=== PATIENT | female | born 1990 | race American Indian/Alaskan Native ===

== ENCOUNTER 2020-03-27 18:22 | Observation (INO) | payer MEDICAID ==
--- NOTE | 2020-03-27 18:51 | Event Note ---
ED Screening Note Date of service: 03/27/20 Time: 18:50 ED Screening Note: Patient reports sent here by primary care doctor for blood transfusion due to hemoglobin of 5 States history of anemia with blood transfusions Denies vaginal bleeding Admits to fatigue This initial assessment/diagnostic orders/clinical plan/treatment(s) is/are subject to change based on patients health status, clinical progression and re- assessment by fellow clinical providers in the ED. Further treatment and workup at subsequent clinical providers discretion. Patient/guardian urged not to elope from the ED as their condition may be serious if not clinically assessed and managed. Initial orders include: Labs
[2020-03-27 20:02] LABS: INR 0.87 (0.87-1.13)
[2020-03-27 20:03] LABS: Mean Corpuscular HGB Conc 28 % (30-34); Partial Thromboplastin Time 24.1 Sec. (24.2-36.6); Platelet Count 642 K/mm3 (140-440); Red Blood Count 3.94 M/mm3 (3.65-5.03)
[2020-03-27 20:07] LABS: Hemoglobin 6.5 gm/dl (10.1-14.3)
[2020-03-27 20:08] LABS: Hematocrit 23.3 % (30.3-42.9); Mean Corpuscular Volume 59 fl (79-97); Red Cell Distribution Width 35.1 % (13.2-15.2)
[2020-03-27 20:09] LABS: Alanine Aminotransferase 9 units/L (7-56); Blood Urea Nitrogen 11 mg/dL (7-17); Calcium 8.9 mg/dL (8.4-10.2); Hemolysis Index 5
[2020-03-27 20:11] LABS: BUN/Creatinine Ratio 18
[2020-03-27 20:57] LABS: Anisocytosis 2+; Hypochromasia 2+; Schistocytes Few; Total Cells Counted 100
[2020-03-27 20:58] LABS: Dimorphic RBC Yes; Target Cells Few
[2020-03-27] MEDS ORDERED: SODIUM CHLORIDE 0.9% 500 ML 500 ML IV ONE ×3 (20:59→23:13)
--- NOTE | 2020-03-27 21:04 | Emergency Department Report ---
ED General Adult HPI - General Chief complaint: Medical Clearance Stated complaint: BLOOD TRANFUSION PUI?: No Time Seen by Provider: 03/27/20 20:49 Source: patient Mode of arrival: Ambulatory Limitations: No Limitations - History of Present Illness Initial comments: Patient is a 29-year-old female that presents emergency room with complaints of fatigue, headache and anemia. Patient states she saw her VICE PRESIDENT PAYMENT yesterday and her hemoglobin was 5. Patient that she has a long history of anemia. Patient denies change in her period. Patient denies heavy bleeding. Patient that she is not on her period right now. Patient denies pain. Patient denies shortness of breath. Patient denies syncope. Patient states she is currently taking a vitamin. Patient denies recent travel. Patient denies recent international travel. P atient denies exposure to the novel coronavirus. Patient denies sick contacts. Patient denies fever and chills. Patient denies cough. Patient denies diarrhea. Patient denies coming in contact with anybody with symptoms of the novel coronavirus. -: Sudden - Related Data Previous Rx's Medication Instructions Recorded Last Taken Type Fluconazole (Nf) [Diflucan TAB] 150 mg PO ONCE #1 tablet 01/21/15 Unknown Rx metroNIDAZOLE [Flagyl TAB] 500 mg PO Q12HR #14 tab 01/21/15 Unknown Rx Ibuprofen [Motrin 600 MG tab] 600 mg PO Q8H PRN #20 tablet 05/06/15 Unknown Rx Allergies Allergy/AdvReac Type Severity Reaction Status Date / Time bee pollen Allergy Itching Verified 01/21/15 08:49 ED Review of Systems ROS: Stated complaint: BLOOD TRANFUSION Other details as noted in HPI Constitutional: malaise. denies: chills, fever Eyes: denies: eye pain, eye discharge, vision change ENT: denies: ear pain, throat pain Respiratory: denies: cough, shortness of breath, wheezing Cardiovascular: denies: chest pain, palpitations Endocrine: no symptoms reported Gastrointestinal: denies: abdominal pain, nausea, diarrhea Genitourinary: denies: urgency, dysuria, discharge Musculoskeletal: denies: back pain, joint swelling, arthralgia Skin: denies: rash, lesions Neurological: headache. denies: weakness, paresthesias Psychiatric: denies: anxiety, depression Hematological/Lymphatic: denies: easy bleeding, easy bruising ED Past Medical Hx - Past Medical History Previous Medical History?: Yes Hx Hypertension: Yes (GESTATIONAL) Additional medical history: miscarriage jun 2013, pre-eclampsia 2009. ANEMIA - Surgical History Past Surgical History?: No Additional Surgical History: tonsillectomy, x 2 - Family History Family history: no significant - Social History Smoking Status: Current Some Day Smoker Substance Use Type: None - Medications Home Medications: Home Medications Medication Instructions Recorded Confirmed Last Taken Type Fluconazole (Nf) [Diflucan TAB] 150 mg PO ONCE #1 tablet 01/21/15 Unknown Rx metroNIDAZOLE [Flagyl TAB] 500 mg PO Q12HR #14 tab 01/21/15 Unknown Rx Ibuprofen [Motrin 600 MG tab] 600 mg PO Q8H PRN #20 tablet 05/06/15 Unknown Rx ED Physical Exam - General Limitations: No Limitations General appearance: alert, in no apparent distress - Head Head exam: Present: atraumatic, normocephalic - Eye Eye exam: Present: normal appearance, PERRL, other (Scleral pallor noted) Pupils: Present: normal accommodation - ENT ENT exam: Present: mucous membranes moist - Neck Neck exam: Present: normal inspection - Respiratory Respiratory exam: Present: normal lung sounds bilaterally. Absent: respiratory distress, wheezes - Cardiovascular Cardiovascular Exam: Present: regular rate, normal rhythm. Absent: systolic murmur, diastolic murmur, rubs, gallop - GI/Abdominal GI/Abdominal exam: Present: soft, normal bowel sounds - Extremities Exam Extremities exam: Present: normal inspection - Back Exam Back exam: Present: normal inspection - Neurological Exam Neurological exam: Present: alert, oriented X3 - Psychiatric Psychiatric exam: Present: normal affect, normal mood - Skin Skin exam: Present: warm, dry, intact, normal color. Absent: rash ED Course Vital Signs 03/27/20 03/27/20 18:57 21:20 Temperature 99.4 F 98.2 F Pulse Rate 54 L 77 Respiratory 18 14 Rate Blood Pressure 115/59 119/58 [Right] O2 Sat by Pulse 100 100 Oximetry - Reevaluation(s) Reevaluation #1: Initial evaluation done. Patient has agreed to a transfusion. Patient will chavez ve 1 unit of blood. I discussed all results with patient. I discussed plan of care with patient. Patient agrees with plan of care and admission. Patient to be admitted to the hospitalist service. 03/27/20 21:03 - Consultations Consultation #1: I discussed the case with Dr. Bailey, VICE PRESIDENT PAYMENT. Dr. Bailey agrees with admission. Patient will be admitted to mother-baby. Bridge orders placed. 03/27/20 21:52 ED Medical Decision Making - Lab Data Result diagrams: 03/27/20 19:19 03/27/20 19:19 - Medical Decision Making Patient is a 29-year-old female who presents emergency room with complaints of headache, fatigue and anemia. Patient had a H&H check yesterday was 5. Patient's VICE PRESIDENT PAYMENT from [facility] sent her here for further evaluation and treatment and possible transfusion. Patient's H&H today 6.5. Patient will be admitted to her VICE PRESIDENT PAYMENT service for further evaluation treatment. Patient's transfusion started here in the ER. Bridge orders placed for Dr. Bailey. - Differential Diagnosis Anemia, abnormal menstrual cycle. Fatigue Critical Care Time: Yes Critical care time in (mins) excluding proc time.: 35 Critical care attestation.: If time is entered above; I have spent that time in minutes in the direct care of this critically ill patient, excluding procedure time. Critical Care Time: 35 minutes ED Disposition Clinical Impression: Anemia Qualifiers: Anemia type: unspecified type Qualified Code(s): D64.9 - Anemia, unspecified Fatigue Qualifiers: Fatigue type: unspecified Qualified Code(s): R53.83 - Other fatigue Disposition: OP ADMIT IP TO THIS HOSP Is pt being admited?: Yes Does the pt Need Aspirin: No Condition: Critical Time of Disposition: 21:54
[2020-03-28] MEDS ORDERED: ACETAMINOPHEN 500 MG TAB PO PRN (03:25)
[2020-03-28 08:35] VITALS: BP 118/67
[2020-03-28 08:54] LABS: Hematocrit 25.4 % (30.3-42.9); Hemoglobin 7.3 gm/dl (10.1-14.3)
--- NOTE | 2020-03-28 10:04 | Event Note ---
Date: 03/28/20 Per RN, pt feeling better after her PRBC unit and her anemic sxs have resolved. PT sent home with BID iron. RTO 1 month.
== END 2020-03-28 10:30 | disposition home or self-care (01) ==
LOC: ED 18:22 → OB 21:53
PROVIDERS: ADMIT Obstetrics & Gynecology; ATTEND Obstetrics & Gynecology
DX: D64.9 Anemia, unspecified (principal); R53.83 Other fatigue; F17.200 Nicotine dependence, unspecified, uncomplicated; Z98.891 History of uterine scar from previous surgery; Z79.899 Other long term (current) drug therapy
CPT/HCPCS: 36415; 36430; 80053; 84703; 85014; 85018; 85025; 85610; 85730; 86850; 86900; 86901; 86920; 96360; 96361; 99291; G0378; J7040; P9016; 85007

== ENCOUNTER 2021-04-27 09:35 | Emergency (ER) | payer MEDICAID ==
[2021-04-27 09:42] VITALS: BP 137/57
[2021-04-27] MEDS ORDERED: ACETAMINOPHEN 500 MG TAB PO ONE (10:10)
--- NOTE | 2021-04-27 10:10 | Emergency Department Report ---
ED HPI - General Chief complaint: Abdominal Pain Stated complaint: ABD PAIN/15 WEEKS PREG Time Seen by Provider: 04/27/21 09:50 Source: patient Mode of arrival: Ambulatory Limitations: No Limitations - History of Present Illness Initial comments: 30-year-old female who is currently 15 weeks presents to the ER with complaints of low abdominal pain. Patient states that she started with low abdominal pain about 1 week ago, more so on the left side and has been intermittent. She states that she went in for her first visit today, and for confirmation at [facility], and she states that when the did ultrasound they were unable to find heart tones and so they sent her to the ER. Patient reports urinary frequency but no other UTI symptoms. She denies any abnormal vaginal symptoms. She reports normal bowel movements. She denies any fever or chills. She states that she is G6, P2 AB 3. MD Complaint: abdominal pain -: Gradual, week(s) (1) - Related Data Previous Rx's Medication Instructions Recorded Last Taken Type Fluconazole (Nf) [Diflucan TAB] 150 mg PO ONCE #1 tablet 01/21/15 Unknown Rx metroNIDAZOLE [Flagyl TAB] 500 mg PO Q12HR #14 tab 01/21/15 Unknown Rx Ibuprofen [Motrin 600 MG tab] 600 mg PO Q8H PRN #20 tablet 05/06/15 Unknown Rx Ferrous Sulfate [Feosol 325 MG tab] 325 mg PO BID #60 tablet 03/28/20 Unknown Rx Allergies Allergy/AdvReac Type Severity Reaction Status Date / Time bee pollen Allergy Itching Verified 01/21/15 08:49 ED Review of Systems ROS: Stated complaint: ABD PAIN/15 WEEKS PREG Other details as noted in HPI Comment: All other systems reviewed and negative Constitutional: denies: chills, fever Eyes: denies: eye pain, eye discharge, vision change ENT: denies: ear pain, throat pain, dental pain, hearing loss, epistaxis, congestion Respiratory: denies: cough, shortness of breath, wheezing Gastrointestinal: abdominal pain. denies: nausea, vomiting, diarrhea, constipation, hematemesis, hematochezia Genitourinary: frequency. denies: urgency, dysuria, hematuria, discharge, abnormal menses, dyspareunia Musculoskeletal: denies: back pain, joint swelling, arthralgia Skin: denies: rash, lesions, change in color, change in hair/nails, pruritus Neurological: denies: headache, weakness, numbness, paresthesias, confusion, abnormal gait, vertigo Psychiatric: as per HPI Hematological/Lymphatic: denies: easy bleeding, easy bruising ED Past Medical Hx - Past Medical History Hx Hypertension: Yes (GESTATIONAL) Hx Congestive Heart Failure: No Hx Diabetes: No Hx Asthma: Yes Hx COPD: No Additional medical history: miscarriage jun 2013, pre-eclampsia 2009. ANEMIA - Surgical History Additional Surgical History: tonsillectomy, x 2 - Social History Smoking Status: Never Smoker - Medications Home Medications: Home Medications Medication Instructions Recorded Confirmed Last Taken Type Fluconazole (Nf) [Diflucan TAB] 150 mg PO ONCE #1 tablet 01/21/15 03/28/20 Unknown Rx metroNIDAZOLE [Flagyl TAB] 500 mg PO Q12HR #14 tab 01/21/15 03/28/20 Unknown Rx Ibuprofen [Motrin 600 MG tab] 600 mg PO Q8H PRN #20 tablet 05/06/15 03/28/20 Unknown Rx Ferrous Sulfate [Feosol 325 MG tab] 325 mg PO BID #60 tablet 03/28/20 Unknown Rx ED Physical Exam - General Limitations: No Limitations General appearance: alert, in no apparent distress - Head Head exam: Present: atraumatic, normocephalic, normal inspection - Eye Eye exam: Present: normal appearance, PERRL, EOMI Pupils: Present: normal accommodation - ENT ENT exam: Present: normal exam, mucous membranes moist, TM's normal bilaterally - Neck Neck exam: Present: normal inspection, full ROM - Respiratory Respiratory exam: Present: normal lung sounds bilaterally. Absent: respiratory distress, wheezes, rales, rhonchi - Cardiovascular Cardiovascular Exam: Present: regular rate, normal rhythm, normal heart sounds - GI/Abdominal GI/Abdominal exam: Present: soft. Absent: distended, tenderness, guarding, rebound - Neurological Exam Neurological exam: Present: alert, oriented X3, CN II-XII intact, normal gait - Psychiatric Psychiatric exam: Present: normal affect, normal mood - Skin Skin exam: Present: intact ED Course Vital Signs 04/27/21 09:42 Temperature 98.1 F Pulse Rate 92 H Respiratory 16 Rate Blood Pressure 137/57 [Right] O2 Sat by Pulse 99 Oximetry ED Medical Decision Making - Lab Data Result diagrams: 04/27/21 11:07 04/27/21 11:07 - Radiology Data Radiology results: report reviewed Patient: JORGE ZACARIAS MR #: [id number] : 1990 Acct:[id number] Age/Sex: 30 / F ADM Date: 04/27/21 Loc: ED Attending Dr: Ordering Physician: ALESIA ABDULLAHI Date of Service: 04/27/21 Procedure(s): US OB >= 14 weeks Fetus Accession Number(s): [id number] cc: ALESIA ABDULLAHI ULTRASOUND OBSTETRIC INDICATION / CLINICAL INFORMATION: 15 weeks preg/low abd pain. Clinical Gestational Age (GA) in weeks, days: 14, 3 TECHNIQUE: Transabdominal. COMPARISON: None available. FINDINGS: Single intrauterine . Biparietal Diameter = 2.6 cm = 14, 4 weeks, days Head Circumference = 9.7 cm = 14, 3 weeks, days Abdominal Circumference = 8.4 cm = 14, 5 weeks, days Femur Length = 1.7 cm = 15, 0 weeks, days Average Ultrasound Age (AUA) = 14, 5 weeks, days Heart Rate: 153 beats per minute. Estimated Weight in grams (if calculated): Not calculated Estimated Weight Growth Percentile (if calculated): Not calculated Position: cephalic. Cervix: closed. Length in cm (if measured): Not measured Placenta: anterior Maternal Adnexa: No significant abnormality. IMPRESSION: 1. Single, living intrauterine with estimated sonographic age of 14, 5 weeks, days. 2. No significant sonographic abnormality. Signer Name: Emiliano Richter DO Signed: 04/27/2021 11:12 AM Workstation Name: [id number] Transcribed By: BARNEY Dictated By: EMILIANO RICHTER DO Electronically Authenticated By: EMILIANO RICHTER DO Signed Date/Time: 04/27/21 1112 DD/ 1108 TD/TT: - Medical Decision Making OB ultrasound shows single live IUP measuring 14 weeks and 5 days with a heart rate of 153. Labs reviewed--CBC unremarkable. Critical care attestation.: If time is entered above; I have spent that time in minutes in the direct care of this critically ill patient, excluding procedure time. ED Disposition Clinical Impression: Abdominal pain in Disposition: HOME / SELF CARE / HOMELESS Is pt being admited?: No Does the pt Need Aspirin: No Condition: Stable Instructions: Abdominal Pain During , Abdominal Pain (ED) Additional Instructions: I recommend taking Tylenol as needed for pain. Recommend that you keep your follow-up appointment with your [facility] for May 11. Recommend no sexual intercourse any strenuous activity until follow-up with OB. Return to the ER if at any point your symptoms worsens or if you develop any significant vaginal bleeding. Referrals: [facility] [Provider Group] - 3-5 Days Forms: Work/School Release Form(ED) Time of Disposition: 13:30
[2021-04-27 10:51] LABS: Bilirubin,Urine NEG (Negative); Blood,Urine NEG (Negative); Color,Urine Yellow (Yellow); Protein,Urine <15 mg/dL mg/dL (Negative); RBC,Urine < 1.0 /HPF (0.0-6.0); Urobilinogen,Urine < 2.0 mg/dL (<2.0)
--- NOTE | 2021-04-27 11:16 | Ultrasound Report ---
ULTRASOUND OBSTETRIC INDICATION / CLINICAL INFORMATION: 15 weeks preg/low abd pain. Clinical Gestational Age (GA) in weeks, days: 14, 3 TECHNIQUE: Transabdominal. COMPARISON: None available. FINDINGS: Single intrauterine . Biparietal Diameter = 2.6 cm = 14, 4 weeks, days Head Circumference = 9.7 cm = 14, 3 weeks, days Abdominal Circumference = 8.4 cm = 14, 5 weeks, days Femur Length = 1.7 cm = 15, 0 weeks, days Average Ultrasound Age (AUA) = 14, 5 weeks, days Heart Rate: 153 beats per minute. Estimated Weight in grams (if calculated): Not calculated Estimated Weight Growth Percentile (if calculated): Not calculated Position: cephalic. Cervix: closed. Length in cm (if measured): Not measured Placenta: anterior Maternal Adnexa: No significant abnormality. IMPRESSION: 1. Single, living intrauterine with estimated sonographic age of 14, 5 weeks, days. 2. No significant sonographic abnormality. Signer Name: Emiliano Richter DO Signed: 04/27/2021 11:12 AM Workstation Name: [email or web address]
[2021-04-27 12:48] LABS: Basophils % (Auto) 0.4 % (0.0-1.8); Eosinophils # (Auto) 0.1 K/mm3 (0.0-0.4); Eosinophils % (Auto) 0.7 % (0.0-4.3); Hematocrit 30.6 % (30.3-42.9); Hemoglobin 9.2 gm/dl (10.1-14.3); Lymphocytes # (Auto) 1.6 K/mm3 (1.2-5.4); Lymphocytes % (Auto) 20.6 % (13.4-35.0); Mean Corpuscular HGB Conc 30 % (30-34); Monocytes # (Auto) 0.6 K/mm3 (0.0-0.8); Platelet Count 258 K/mm3 (140-440); Red Blood Count 4.41 M/mm3 (3.65-5.03)
[2021-04-27 12:49] LABS: Mean Corpuscular Volume 69 fl (79-97); Red Cell Distribution Width 21.7 % (13.2-15.2)
[2021-04-27 13:06] LABS: Alanine Aminotransferase 10 units/L (7-56); Albumin 3.6 g/dL (3.9-5); Blood Urea Nitrogen 7 mg/dL (7-17); Calcium 9.3 mg/dL (8.4-10.2); Hemolysis Index 4
[2021-04-27 13:10] LABS: BUN/Creatinine Ratio 18
== END 2021-04-27 13:36 | disposition home or self-care (01) ==
LOC: ED 09:35
DX: O26.892 Other specified pregnancy related conditions, second trimester (principal); R10.30 Lower abdominal pain, unspecified; Z3A.15 15 weeks gestation of pregnancy
CPT/HCPCS: 36415; 76805; 80053; 81001; 84702; 85025; 99284

== ENCOUNTER 2021-10-04 10:41 | Outpatient (CLI) | payer MEDICAID ==
[2021-10-04 12:47] VITALS: BP 128/65
[2021-10-04 12:53] LABS: Bilirubin,Urine NEG (Negative); Blood,Urine NEG (Negative); Color,Urine Yellow (Yellow); Mucus,Urine FEW /HPF; Protein,Urine <15 mg/dL mg/dL (Negative); Urobilinogen,Urine < 2.0 mg/dL (<2.0)
[2021-10-04 12:58] LABS: Hematocrit 32.8 % (30.3-42.9); Hemoglobin 10.4 gm/dl (10.1-14.3); Mean Corpuscular HGB Conc 32 % (30-34); Mean Corpuscular Volume 77 fl (79-97); Red Blood Count 4.26 M/mm3 (3.65-5.03)
[2021-10-04 13:03] LABS: Platelet Count 205 K/mm3 (140-440); Red Cell Distribution Width 24.8 % (13.2-15.2)
[2021-10-04 13:20] LABS: Alanine Aminotransferase 15 units/L (7-56); Uric Acid 4.8 mg/dL (3.5-7.6)
[2021-10-04] MEDS ORDERED: BETAMET ACET/BETAMET NA PH 6 MG/ML INJ 5 ML MDV IM ONE (13:54)
== END 2021-10-04 14:17 | disposition home or self-care (01) ==
LOC: TRG 10:41 → APU 10:43 → TRG 14:17
PROVIDERS: ATTEND Obstetrics & Gynecology
DX: Z34.83 Encounter for supervision of other normal pregnancy, third trimester (principal); Z3A.37 37 weeks gestation of pregnancy
CPT/HCPCS: 36415; 59025; 81001; 82565; 83615; 84450; 84460; 84550; 85027